=== PATIENT | female | born 1945 | race Caucasian/White ===

== ENCOUNTER 2016-08-01 15:33 | Emergency (ER) | payer OTHER ==
[~2016-08-01] VITALS: Ht 167.6 cm; Wt 64.5 kg
[~2016-08-01 15:33] MED LIST: OMEP20TA PO; TRAM50TA PO
[2016-08-01 15:39] VITALS: BP 91/59; PULSE 99; RESP 17; TEMP 97.3; O2SAT 96
[2016-08-01] MEDS ORDERED: OMEP20TA PO (15:55)
[2016-08-01] MEDS ORDERED: DEXAMETHASONE SOD PHOS 20 MG/5 ML VIAL IM ONE (16:15)
[2016-08-01] MEDS ORDERED: KETOROLAC TROMETHAMINE 60 MG/2 ML (IM) VIAL IM ONE (16:15)
--- NOTE | 2016-08-01 16:35 | PD ---
HPI Chief Complaint: Back/ Neck Pain or Injury Time Seen by Provider: 16:15 Travel History International Travel<30 days: No Contact w/Intl Traveler<30days: No Traveled to known affect area: No History of Present Illness HPI 70-year-old female presents to emergency Department with 2 day history of right posterior pelvic pain into the right hip. Patient has history of lower back pain and hip pain for years. Patient was seen here last 5 years ago for similar complaints. Patient states that she had gone to a specialist and had massage therapy which worked for years, but 2 days ago she developed sudden onset pain in the same area which now causes pain with ambulation and certain movements. She denies numbness, tingling, or urinary symptoms. Patient is been treated in the past with steroids and muscle relaxants with good result. Patient denies radicular symptoms into the leg. She has no weakness. Patient has history of allergy to iodinated contrast media. She has no medication allergies. PFSH Past Medical History Hx Anticoagulant Therapy: No Anemia: Yes Cardiovascular Problems: No Chemotherapy: No Cerebrovascular Accident: No Diabetes: No Diminished Hearing: No Gastrointestinal Disorders: Yes (SPASTIC COLON, GASTRIC ULCERS X2) GERD: Yes Headaches: Yes Hiatal Hernia: Yes Herniated Disk: Yes (Lumbar) Musculoskeletal: Yes (CHRONIC BACK PAIN SINCE 1985) Respiratory: No Immunizations Current: No Pneumonia: Yes Ulcer: Yes (Gastric) Tetanus Vaccination: < 5 Years Influenza Vaccination: No ?: Not Menopausal: Yes : 4 Para: 2 Miscarriage: 2 Past Surgical History Appendectomy: Yes Hysterectomy: Yes Tonsillectomy: Yes Other Surgery: Yes (RIGHT ROTATOR CUFF 07/02/14) Social History Alcohol Use: No Tobacco Use: No Substance Use: No Allergies-Medications (Allergen,Severity, Reaction): Coded Allergies: Iodinated Contrast Media (Verified Allergy, Severe, Hypotension, 08/01/16) HYPOTENSION WITH TACHYCARDIA. PT DENIES Reported Meds & Prescriptions Reported Meds & Active Scripts Active Reported Omeprazole 20 Mg Tab 20 Mg PO DAILY Review of Systems Except as stated in HPI: all other systems reviewed are Neg General / Constitutional: No: Fever Eyes: No: Visual changes HENT: No: Headaches Cardiovascular: No: Chest Pain or Discomfort Respiratory: No: Shortness of Breath Gastrointestinal: No: Abdominal Pain Genitourinary: No: Dysuria Musculoskeletal: Positive: Arthralgias, Limited ROM (see history present illness), Pain Skin: No Rash Neurologic: No: Weakness Psychiatric: No: Depression Endocrine: No: Polydipsia Hematologic/Lymphatic: No: Easy Bruising Physical Exam Narrative GENERAL: Patient appears in mild to moderate distress. SKIN: Warm and dry. Normal color. Normal turgor. No rash. HEAD: Atraumatic. Normocephalic. EYES: Pupils equal and round. No scleral icterus. No injection or drainage. ENT: No nasal bleeding or discharge. Mucous membranes pink and moist. Pharynx is normal. NECK: Trachea midline. Neck is supple nontender. CARDIOVASCULAR: Regular rate and rhythm. RESPIRATORY: No accessory muscle use. Clear to auscultation. Breath sounds equal bilaterally. GASTROINTESTINAL: Abdomen soft, non-tender, nondistended. Hepatic and splenic margins not palpable. MUSCULOSKELETAL: Extremities without clubbing, cyanosis, or edema. No obvious deformities. Patient is tenderness with palpation along the right sacroiliac notch without straight leg raise pain or pain with hip range of motion. There is no pain in the lumbar spine. NEUROLOGICAL: Awake and alert. No obvious cranial nerve deficits. Motor grossly within normal limits. Five out of 5 muscle strength in the arms and legs. Normal speech. PSYCHIATRIC: Appropriate mood and affect; insight and judgment normal. Data Data Last Documented VS Vital Signs Date Time Temp Pulse Resp B/P Pulse Ox O2 Delivery O2 Flow Rate FiO2 08/01/16 15:39 97.3 99 17 91/59 96 Orders Ketorolac Inj (Toradol Inj) (08/01/16 16:15) Dexamethasone Inj (Decadron Inj) (08/01/16 16:15) [facility] Medical Decision Making Medical Screen Exam Complete: Yes Emergency Medical Condition: Yes Differential Diagnosis Low back pain. Arthritis. Sacroiliitis. Narrative Course Patient is medically stable at time of exam. Radiographic imaging is not felt warranted at this time based on my history and physical. Patient is given Toradol 60 mg IM as well as 10 mg Decadron IM. Patient is given prednisone 20 mg twice a day 5 days. Patient can take Lortab 5 325 one every 6 hours when necessary pain #12. Patient is encouraged to use heat and ice and gentle stretching for the next week. Patient should follow-up with her primary care physician or return to emergency Department with worsening symptoms if necessary. Diagnosis Primary Impression: Sacroiliitis Referrals: Primary Care Physician Patient Instructions: General Instructions, Sacroiliitis (ED) Additional Instructions: Radiographic imaging is not felt warranted at this time based on my history and physical. Patient is given Toradol 60 mg IM as well as 10 mg Decadron IM. Patient is given prednisone 20 mg twice a day 5 days. Patient can take Lortab 5 325 one every 6 hours when necessary pain #12. Patient is encouraged to use heat and ice and gentle stretching for the next week. Patient should follow-up with her primary care physician or return to emergency Department with worsening symptoms if necessary. Med/Other Pt SpecificInfo: Prescription(s) given Scripts Prednisone 20 Mg Tab20 Mg PO BID #10 TAB Prov:Stefanie Larose MD 08/01/16 Hydrocodone-Acetaminophen (Lortab)5-325 Mg Tab1-2 Tab PO Q6H PRN (PAIN) #12 TAB Prov:Stefanie Larose MD 08/01/16 Disposition: 01 DISCHARGE HOME Condition: Stable Christiano Yanes Aug 01, 2016 16:35
[2016-08-01] MEDS ORDERED: PRED20 PO (16:36)
[2016-08-01] MEDS ORDERED: HYDR-3533 PO (16:36)
== END 2016-08-01 17:07 | disposition home or self-care (01) ==
LOC: PHEFT 15:33
DX: M46.1 Sacroiliitis, not elsewhere classified (principal)
CPT/HCPCS: 96372; 99283; J1100; J1885

== ENCOUNTER 2017-01-29 17:36 | Emergency (ER) | payer OTHER ==
[~2017-01-29] VITALS: Ht 167.6 cm; Wt 64.6 kg
[~2017-01-29 17:36] MED LIST changes: +HYDR-3533 PO; +PRED20 PO; -TRAM50TA PO
[2017-01-29 17:45] VITALS: BP 127/61; PULSE 72; RESP 16; TEMP 98.7
--- NOTE | 2017-01-29 18:19 | PD ---
HPI Chief Complaint: Abdominal Pain Time Seen by Provider: 17:52 Travel History International Travel<30 days: No Contact w/Intl Traveler<30days: No Traveled to known affect area: No History of Present Illness HPI This patient complains of periodic abdominal symptoms for the last 18 months. She feels bloated often. She has poor appetite. Sometimes feel like her abdomen is swollen. Her primary physician sent her to GI physician who she seen 4 times now for this problem. She had an outpatient ultrasound of the abdomen done today. She had lab studies yesterday. She doesn't know what any of those studies showed. She denies vomiting or fever or diarrhea. No alleviating factors. Symptoms severity is moderate. PFSH Past Medical History Hx Anticoagulant Therapy: No Anemia: Yes Cardiovascular Problems: No Chemotherapy: No Cerebrovascular Accident: No Diabetes: No Diminished Hearing: No Gastrointestinal Disorders: Yes (SPASTIC COLON, GASTRIC ULCERS X2) GERD: Yes Headaches: Yes Hiatal Hernia: Yes Herniated Disk: Yes (Lumbar) Musculoskeletal: Yes (CHRONIC BACK PAIN SINCE 1985) Respiratory: No Immunizations Current: No Pneumonia: Yes Ulcer: Yes (Gastric) Menopausal: Yes : 4 Para: 2 Miscarriage: 2 Past Surgical History Appendectomy: Yes Hysterectomy: Yes Tonsillectomy: Yes Other Surgery: Yes (RIGHT ROTATOR CUFF 07/02/14) Social History Alcohol Use: No Tobacco Use: No Substance Use: No Allergies-Medications (Allergen,Severity, Reaction): Coded Allergies: Iodinated Contrast- Oral and IV Dye (Unverified Allergy, Severe, Hypotension, 12/22/16) HYPOTENSION WITH TACHYCARDIA. PT DENIES Reported Meds & Prescriptions Reported Meds & Active Scripts Active Prednisone 20 Mg Tab 20 Mg PO BID Lortab (Hydrocodone-Acetaminophen) 5-325 Mg Tab 1-2 Tab PO Q6H PRN Reported Omeprazole 20 Mg Tab 20 Mg PO DAILY Review of Systems General / Constitutional: No: Fever HENT: No: Headaches Cardiovascular: No: Chest Pain or Discomfort Respiratory: No: Cough Gastrointestinal: Positive: Abdominal Pain, Loss of Appetite Genitourinary: No: Frequency Physical Exam Narrative GENERAL: Well-nourished, well-developed patient in no apparent distress. SKIN: Focused skin assessment reveals no rash and nodules. Skin is Warm and dry. HEAD: Atraumatic. Normocephalic. EYES: Pupils equal and round. No scleral icterus. No injection or drainage. ENT: No nasal bleeding or discharge. Mucous membranes pink and moist. NECK: Trachea midline. No JVD. CARDIOVASCULAR: Regular rate and rhythm. No murmur appreciated. RESPIRATORY: No accessory muscle use. Clear to auscultation. Breath sounds equal bilaterally. GASTROINTESTINAL: Abdomen soft, non-tender, nondistended. Hepatic and splenic margins not palpable. MUSCULOSKELETAL: No obvious deformities. No clubbing. No cyanosis. No edema. NEUROLOGICAL: Awake and alert. No obvious cranial nerve deficits. Motor grossly within normal limits. Normal speech. PSYCHIATRIC: Appropriate mood and affect; insight and judgment normal. Data Data Last Documented VS Vital Signs Date Time Temp Pulse Resp B/P (MAP) Pulse Ox O2 Delivery O2 Flow Rate FiO2 01/29/17 17:45 98.7 72 16 127/61 (83) MDM Medical Decision Making Medical Screen Exam Complete: Yes Emergency Medical Condition: Yes Medical Record Reviewed: Yes Differential Diagnosis Irritable bowel syndrome, gastroparesis, colitis Narrative Course I have reviewed the patient's electronic medical record. I located her outpatient ultrasound done earlier today which did not show anything dangerous or emergent. No gallstones or liver mass. Patient's examination vitals are normal. She looks asymptomatic. She has a chronic problem over 18 months. I don't see any indication for emergent studies at this time. She should discuss this with her primary physician and GI physician and get some sort of plan together. Diagnosis Primary Impression: Chronic abdominal pain Additional Impression: Loss of appetite Additional Instructions: The patient was advised to follow up with their physician and return if they worsen. Med/Other Pt SpecificInfo: Other Disposition: 01 DISCHARGE HOME Condition: Stable Angel Noguera MD Jan 29, 2017 18:18
[2017-01-29] MEDS ORDERED: SUCR1TAB PO (18:20)
[2017-01-29] MEDS ORDERED: FAMO1TAB37 PO (18:20)
== END 2017-01-29 18:54 | disposition home or self-care (01) ==
LOC: PHED 17:36
DX: G89.29 Other chronic pain (principal); R10.9 Unspecified abdominal pain; K21.9 Gastro-esophageal reflux disease without esophagitis; K58.9 Irritable bowel syndrome, unspecified; Z87.19 Personal history of other diseases of the digestive system
CPT/HCPCS: 99281